=== PATIENT | female | born 1970 | race Caucasian/White ===

== ENCOUNTER 2018-12-21 11:11 | Day surgery (SDC) | payer OTHER ==
[2018-12-21] MEDS ORDERED: ONDANSETRON 4 MG INJ IV (13:30)
[2018-12-21] MEDS ORDERED: ALBUTEROL 0.083% (NEB) 2.5 MG/3 ML AMP HHN (13:30)
[2018-12-21] MEDS ORDERED: ACETAMINOPHEN 500 MG TAB PO (13:30)
[2018-12-21] MEDS ORDERED: FENTAnyl 50 MCG/ML VIAL IV (13:30)
[2018-12-21] MEDS ORDERED: PROPOFOL 40 ML (13:40)
[2018-12-21] MEDS ORDERED: LIDOCAINE 2% (SDV) 5 ML INJ (13:40)
== END 2018-12-21 16:09 | disposition home or self-care (01) ==
LOC: GIL 11:11
DX: Z12.11 Encounter for screening for malignant neoplasm of colon (principal); K64.8 Other hemorrhoids; I10 Essential (primary) hypertension
CPT/HCPCS: 45378